=== PATIENT | female | born 1940 | race African-American/Black ===

== ENCOUNTER 2017-03-04 17:43 | Inpatient (IN) | payer MEDICARE, MEDICAID ==
[~2017-03-04] VITALS: Ht 162.6 cm; Wt 62.1 kg
[~2017-03-04 17:43] MED LIST: METO-539 PO
[2017-03-04 19:30] LABS: BASOPHILS % 0.7 % (0.0-2.0); EOSINOPHILS % 0.5 % (0.0-5.0); HEMATOCRIT. 37.4 % (36.0-48.0); HEMOGLOBIN. 12.4 g/dL (12.0-16.0); LYMPHOCYTES % 14.2 % (20.0-50.0); MEAN CORPUSCULAR HEMOGLOBIN 30.1 pg (28.0-32.0); MEAN CORPUSCULAR VOLUME 90.5 fL (81.0-99.0); MEAN PLATELET VOLUME 9.1 fl (7.4-10.4); MONOCYTES % 7.8 % (2.0-8.0); NEUTROPHILS % 76.8 % (40.0-76.0); PLATELET 192 x1000/uL (130-400); RED BLOOD CELL COUNT 4.13 mill/uL (4.2-5.4)
[2017-03-04 19:37] LABS: INR 1.1; PARTIAL THROMBOPLASTIN TIME 26.4 sec (24.0-34.0); PROTHROMBIN TIME 11.3 sec
[2017-03-04 19:47] LABS: CARBON DIOXIDE 27 mEq/L (21-32); CHLORIDE 104 mEq/L (98-107)
[2017-03-04 19:48] LABS: TROPONIN I < 0.02 ng/mL (0.00-0.04)
[2017-03-05] MEDS ORDERED: DOCUSATE SODIUM 100MG CAPSULE PO PRN (00:45)
[2017-03-05] MEDS ORDERED: IPRATROPIUM/ALBUTEROL 0.5-3(2.5)MG/3ML NEB INH PRN (00:45)
[2017-03-05] MEDS ORDERED: ONDANSETRON HCL 4MG/2ML VIAL IV PRN (00:45)
[2017-03-05] MEDS: ACETAMINOPHEN 325MG TABLET PO PRN ×2 (02:13→11:12)
[2017-03-05 05:45] LABS: HEMATOCRIT 34.9 % (36.0-48.0); HEMOGLOBIN 11.6 g/dL (12.0-16.0); MEAN CORPUSCULAR HEMOGLOBIN 29.9 pg (28.0-32.0); MEAN CORPUSCULAR VOLUME 90.4 fL (81.0-99.0); PLATELET 179 x1000/uL (130-400); RED BLOOD CELL COUNT 3.86 mill/uL (4.2-5.4); RED CELL DISTRIBUTION WIDTH 14.8 % (11.6-14.6)
[2017-03-05 06:12] LABS: CHLORIDE 105 mEq/L (98-107)
[2017-03-05 06:29] LABS: CARBON DIOXIDE 28 mEq/L (21-32); HDL CHOLESTEROL 53 mg/dL (40-59); LDL CHOLESTEROL 125 mg/dL (5-100)
[2017-03-05] MEDS ORDERED: ATOR10TA69 PO (10:29)
[2017-03-05] MEDS ORDERED: AMLO2.5T45 PO (10:29)
[2017-03-05] MEDS ORDERED: ASPI-1159 PO (10:29)
[2017-03-05] MEDS ORDERED: CLOP75TA33 PO (10:29)
[2017-03-05] MEDS ORDERED: LISI-186 PO (10:29)
[2017-03-05] MEDS ORDERED: CLOPIDOGREL 75MG TABLET PO SCH (11:00)
[2017-03-05] MEDS ORDERED: ASPIRIN 81MG TABLET PO SCH (11:00)
[2017-03-05] MEDS: CLOPIDOGREL 75MG TABLET PO SCH (11:09)
[2017-03-05] MEDS: LISINOPRIL 5MG TABLET PO SCH (11:09)
[2017-03-05] MEDS: METOPROLOL TARTRATE 50MG TABLET PO SCH ×2 (11:10→21:00)
[2017-03-05] MEDS: ASPIRIN 81MG EC TABLET PO SCH (11:11)
[2017-03-05] MEDS: OMEPRAZOLE 20MG CAPSULE EXTENDED RELEASE PO SCH (11:11)
[2017-03-05] MEDS: AMLODIPINE 2.5MG TABLET PO SCH (11:11)
[2017-03-05] MEDS: LOSARTAN POTASSIUM 50 MG TABLET PO SCH (11:15)
[2017-03-05 12:44] LABS: CLARITY URINE CLOUDY (CLEAR); COLOR URINE YELLOW (YELLOW); KETONES URINE NEGATIVE (NEGATIVE); LEUKOCYTE ESTERASE URINE TRACE (NEGATIVE); NITRITE URINE NEGATIVE (NEGATIVE); OCCULT BLOOD URINE NEGATIVE (NEGATIVE); PROTEIN URINE NEGATIVE (NEGATIVE); SPECIFIC GRAVITY URINE 1.028 (1.005-1.030)
[2017-03-05 13:08] LABS: *AMPHETAMINES SCREEN URINE NEGATIVE (NEGATIVE); *BARBITURATES SCREEN URINE NEGATIVE (NEGATIVE); *BENZODIAZEPINES SCREEN URINE NEGATIVE (NEGATIVE); *COCAINE SCREEN URINE NEGATIVE (NEGATIVE); CANNABINOID URINE SCREEN NEGATIVE (NEGATIVE); METHADONE URINE SCREEN NEGATIVE (NEGATIVE); OPIATES URINE SCREEN NEGATIVE (NEGATIVE); PHENCYCLIDINE URINE SCREEN NEGATIVE (NEGATIVE)
[2017-03-05] MEDS: ATORVASTATIN CALCIUM 10MG TABLET PO SCH (22:03)
[2017-03-06] MEDS: OMEPRAZOLE 20MG CAPSULE EXTENDED RELEASE PO SCH (06:14)
[2017-03-06] MEDS: CLOPIDOGREL 75MG TABLET PO SCH (09:04)
[2017-03-06] MEDS: ASPIRIN 81MG EC TABLET PO SCH (09:04)
[2017-03-06] MEDS: AMLODIPINE 2.5MG TABLET PO SCH (09:05)
[2017-03-06] MEDS: LOSARTAN POTASSIUM 50 MG TABLET PO SCH (09:05)
[2017-03-06] MEDS ORDERED: LACTULOSE 20G/30ML UDC PO PRN (13:30)
[2017-03-06] MEDS: METOPROLOL TARTRATE 50MG TABLET PO SCH ×2 (14:57→21:00)
[2017-03-06] MEDS: LISINOPRIL 5MG TABLET PO SCH (14:57)
[2017-03-06] MEDS: ACETAMINOPHEN 325MG TABLET PO PRN (21:59)
[2017-03-06] MEDS: ATORVASTATIN CALCIUM 10MG TABLET PO SCH (21:59)
[2017-03-07 05:46] LABS: CARBON DIOXIDE 30 mEq/L (21-32); CHLORIDE 105 mEq/L (98-107)
[2017-03-07] MEDS: OMEPRAZOLE 20MG CAPSULE EXTENDED RELEASE PO SCH (06:16)
[2017-03-07 07:20] LABS: BASOPHILS % 0.9 % (0.0-2.0); EOSINOPHILS % 2.5 % (0.0-5.0); LYMPHOCYTES % 39.4 % (20.0-50.0); MEAN CORPUSCULAR HEMOGLOBIN 30.1 pg (28.0-32.0); MEAN CORPUSCULAR VOLUME 90.6 fL (81.0-99.0); MEAN PLATELET VOLUME 9.4 fl (7.4-10.4); MONOCYTES % 8.1 % (2.0-8.0); NEUTROPHILS % 49.1 % (40.0-76.0); PLATELET 235 x1000/uL (130-400); RED BLOOD CELL COUNT 3.97 mill/uL (4.2-5.4); RED CELL DISTRIBUTION WIDTH 14.5 % (11.6-14.6)
[2017-03-07] MEDS ORDERED: REGADENOSON 0.4 MG/5 ML IV NR (07:30)
[2017-03-07] MEDS: METOPROLOL TARTRATE 50MG TABLET PO SCH ×3 (09:00→20:31)
[2017-03-07] MEDS ORDERED: REGADENOSON 0.4 MG/5 ML IV ONE (10:39)
[2017-03-07] MEDS ORDERED: SODIUM CHLORIDE 0.9% 1,000 ML IV SCH (12:15)
[2017-03-07] MEDS: SODIUM CHLORIDE 0.9% 1,000 ML IV SCH (12:37)
[2017-03-07] MEDS: CLOPIDOGREL 75MG TABLET PO SCH (14:20)
[2017-03-07] MEDS: ASPIRIN 81MG EC TABLET PO SCH (14:20)
[2017-03-07] MEDS: AMLODIPINE 2.5MG TABLET PO SCH (14:21)
[2017-03-07] MEDS: LISINOPRIL 5MG TABLET PO SCH (14:21)
[2017-03-07] MEDS: LOSARTAN POTASSIUM 50 MG TABLET PO SCH (14:23)
[2017-03-07] MEDS: ATORVASTATIN CALCIUM 10MG TABLET PO SCH (20:31)
[2017-03-07] MEDS: ACETAMINOPHEN 325MG TABLET PO PRN (22:07)
[2017-03-08] MEDS: SODIUM CHLORIDE 0.9% 1,000 ML IV SCH ×2 (04:34→20:24)
[2017-03-08 06:19] LABS: BASOPHILS % 1.1 % (0.0-2.0); EOSINOPHILS % 2.6 % (0.0-5.0); HEMOGLOBIN. 11.5 g/dL (12.0-16.0); LYMPHOCYTES % 35.7 % (20.0-50.0); MEAN CORPUSCULAR HEMOGLOBIN 29.9 pg (28.0-32.0); MEAN PLATELET VOLUME 8.9 fl (7.4-10.4); NEUTROPHILS % 51.6 % (40.0-76.0); PLATELET 229 x1000/uL (130-400); RED BLOOD CELL COUNT 3.84 mill/uL (4.2-5.4); RED CELL DISTRIBUTION WIDTH 14.5 % (11.6-14.6)
[2017-03-08] MEDS: OMEPRAZOLE 20MG CAPSULE EXTENDED RELEASE PO SCH (06:25)
[2017-03-08 07:04] LABS: CHLORIDE 107 mEq/L (98-107)
[2017-03-08 07:07] LABS: CARBON DIOXIDE 28 mEq/L (21-32)
[2017-03-08] MEDS: METOPROLOL TARTRATE 50MG TABLET PO SCH ×2 (08:23→20:24)
[2017-03-08] MEDS: CLOPIDOGREL 75MG TABLET PO SCH (08:23)
[2017-03-08] MEDS: LOSARTAN POTASSIUM 50 MG TABLET PO SCH (08:23)
[2017-03-08] MEDS: LISINOPRIL 5MG TABLET PO SCH (08:23)
[2017-03-08] MEDS: AMLODIPINE 2.5MG TABLET PO SCH (08:24)
[2017-03-08] MEDS: ASPIRIN 81MG EC TABLET PO SCH (10:43)
[2017-03-08] MEDS: CLONIDINE 0.1MG TABLET PO PRN (16:59)
[2017-03-08] MEDS: ATORVASTATIN CALCIUM 10MG TABLET PO SCH (20:24)
[2017-03-08] MEDS: ACETAMINOPHEN 325MG TABLET PO PRN (23:25)
[2017-03-09] MEDS: OMEPRAZOLE 20MG CAPSULE EXTENDED RELEASE PO SCH (06:18)
[2017-03-09] MEDS ORDERED: IOHEXOL-350 100 ML BOTTLE ONE (11:18)
[2017-03-09] MEDS ORDERED: SODIUM CHLORIDE 0.9% 10ML VIAL ONE (11:18)
[2017-03-09] MEDS: LOSARTAN POTASSIUM 50 MG TABLET PO SCH (11:38)
[2017-03-09] MEDS: ASPIRIN 81MG EC TABLET PO SCH (11:38)
[2017-03-09] MEDS: AMLODIPINE 2.5MG TABLET PO SCH (11:38)
[2017-03-09] MEDS: LISINOPRIL 5MG TABLET PO SCH (11:38)
[2017-03-09] MEDS: CLOPIDOGREL 75MG TABLET PO SCH (11:38)
[2017-03-09] MEDS: METOPROLOL TARTRATE 50MG TABLET PO SCH ×2 (11:39→21:07)
[2017-03-09] MEDS: SODIUM CHLORIDE 0.9% 1,000 ML IV SCH ×2 (14:30→21:07)
[2017-03-09] MEDS: ATORVASTATIN CALCIUM 10MG TABLET PO SCH (21:07)
[2017-03-10] MEDS: CLONIDINE 0.1MG TABLET PO PRN (00:24)
[2017-03-10] MEDS: OMEPRAZOLE 20MG CAPSULE EXTENDED RELEASE PO SCH (06:35)
[2017-03-10 07:20] LABS: BASOPHILS % 0.9 % (0.0-2.0); EOSINOPHILS % 2.2 % (0.0-5.0); HEMATOCRIT. 36.2 % (36.0-48.0); LYMPHOCYTES % 39.6 % (20.0-50.0); MEAN CORPUSCULAR HEMOGLOBIN 30.1 pg (28.0-32.0); MEAN CORPUSCULAR VOLUME 90.3 fL (81.0-99.0); MEAN PLATELET VOLUME 8.8 fl (7.4-10.4); NEUTROPHILS % 50.3 % (40.0-76.0); PLATELET 244 x1000/uL (130-400); RED CELL DISTRIBUTION WIDTH 14.7 % (11.6-14.6)
[2017-03-10 07:36] LABS: CARBON DIOXIDE 28 mEq/L (21-32); CHLORIDE 106 mEq/L (98-107)
[2017-03-10] MEDS: LOSARTAN POTASSIUM 50 MG TABLET PO SCH (08:40)
[2017-03-10] MEDS: AMLODIPINE 2.5MG TABLET PO SCH (08:40)
[2017-03-10] MEDS: LISINOPRIL 5MG TABLET PO SCH (08:40)
[2017-03-10] MEDS: ASPIRIN 81MG EC TABLET PO SCH (08:40)
[2017-03-10] MEDS: CLOPIDOGREL 75MG TABLET PO SCH (08:41)
[2017-03-10] MEDS: METOPROLOL TARTRATE 50MG TABLET PO SCH (08:41)
[2017-03-10 13:35] VITALS: BP 162/97
== END 2017-03-10 14:55 | disposition home health service (06) | DRG 74 ==
LOC: ER 17:43 → SUPCPDRO 03-05 00:36 → EDBEDREQ 03-05 00:39 → 6WST 03-05 03:03 → ENRESERV 03-05 03:03
PROVIDERS: ADMIT Family Medicine Adult Medicine; ATTEND Family Medicine Adult Medicine
DX: G90.8 Other disorders of autonomic nervous system (principal); G95.20 Unspecified cord compression; E78.5 Hyperlipidemia, unspecified; M48.02 Spinal stenosis, cervical region; E78.00 Pure hypercholesterolemia, unspecified; F03.90 Unspecified dementia, unspecified severity, without behavioral disturbance, psychotic disturbance, mood disturbance, and anxiety; F17.210 Nicotine dependence, cigarettes, uncomplicated; M50.21 Other cervical disc displacement, high cervical region; M50.81 Other cervical disc disorders, high cervical region; I10 Essential (primary) hypertension; I65.21 Occlusion and stenosis of right carotid artery; Z82.49 Family history of ischemic heart disease and other diseases of the circulatory system; Z86.73 Personal history of transient ischemic attack (TIA), and cerebral infarction without residual deficits; Z79.899 Other long term (current) drug therapy; Z72.89 Other problems related to lifestyle; Z90.49 Acquired absence of other specified parts of digestive tract; Z79.82 Long term (current) use of aspirin; I95.1 Orthostatic hypotension
CPT/HCPCS: 36415; 70450; 70498; 70544; 70553; 71010; 72125; 72141; 78452; 80048; 80053; 80061; 80305; 81001; 83735; 83880; 84443; 84484; 85025; 85027; 85610; 85730; 87086; 93005; 93017; 93306; 93880; 97162; 97165; 99285; A4216; A9500; G0482; J2785; J7030; Q9967

== ENCOUNTER 2019-01-28 18:12 | Inpatient (IN) | payer MEDICARE, MEDICAID ==
[~2019-01-28] VITALS: Ht 162.6 cm; Wt 70.5 kg
[~2019-01-28 18:12] MED LIST changes: +AMLO2.5T45 PO; +ASPI-1393 PO; +CLOP75TA33 PO; +LISI-186 PO
[2019-01-28 21:19] LABS: CHLORIDE 105 mEq/L (98-107); INR 1.1; PROTHROMBIN TIME 10.9 sec (9.6-11.0)
[2019-01-28 21:21] LABS: BASOPHILS % 1.1 % (0.0-2.0); EOSINOPHILS % 1.6 % (0.0-5.0); HEMATOCRIT. 41.3 % (36.0-48.0); HEMOGLOBIN. 13.8 g/dL (12.0-16.0); LYMPHOCYTES % 37.1 % (20.0-50.0); MEAN CORPUSCULAR HEMOGLOBIN 30.3 pg (28.0-32.0); MEAN CORPUSCULAR VOLUME 90.5 fL (81.0-99.0); MEAN PLATELET VOLUME 9.9 fl (7.4-10.4); MONOCYTES % 6.7 % (2.0-8.0); NEUTROPHILS % 53.5 % (40.0-76.0); PLATELET 156 x1000/uL (130-400); RED BLOOD CELL COUNT 4.56 mill/uL (4.2-5.4); RED CELL DISTRIBUTION WIDTH 15.1 % (11.6-14.6)
[2019-01-28] MEDS ORDERED: SODIUM CHLORIDE 0.9% 1000ML BAG (SEPSIS BOLUS) IV ONE (21:45)
[2019-01-28 23:57] LABS: CLARITY URINE CLEAR (CLEAR); COLOR URINE YELLOW (YELLOW); KETONES URINE NEGATIVE (NEGATIVE); LEUKOCYTE ESTERASE URINE TRACE (NEGATIVE); NITRITE URINE NEGATIVE (NEGATIVE); OCCULT BLOOD URINE NEGATIVE (NEGATIVE); PROTEIN URINE NEGATIVE (NEGATIVE); SPECIFIC GRAVITY URINE 1.014 (1.005-1.030)
[2019-01-29 00:30] VITALS: BP_SYST 161; BP_SYST 162; BP_DIAS 64; BP_DIAS 70
[2019-01-29] MEDS: CLONIDINE 0.1MG TABLET PO PRN ×2 (01:44→13:40)
[2019-01-29] MEDS ORDERED: HYDROCODONE/ACETAMINOPHEN 5/325MG TABLET PO PRN (02:15)
[2019-01-29] MEDS ORDERED: ATOR10TA69 PO (02:21)
[2019-01-29] MEDS ORDERED: ERGO400C PO (02:21)
[2019-01-29 04:00] VITALS: BP 137/68
[2019-01-29 08:00] VITALS: BP 155/50
[2019-01-29] MEDS ORDERED: MEDICATION NOT ON FORMULARY EA (Amlodipine Besylate 1 TAB) PO SCH (09:00)
[2019-01-29] MEDS ORDERED: MEDICATION NOT ON FORMULARY EA (Lisinopril 1 TAB) PO SCH (09:00)
[2019-01-29] MEDS ORDERED: MEDICATION NOT ON FORMULARY EA (Clopidogrel Bisulfate (Clopidogrel) 1 TAB) PO SCH (09:00)
[2019-01-29] MEDS: LISINOPRIL 5MG TABLET PO SCH (09:18)
[2019-01-29] MEDS: AMLODIPINE 2.5MG TABLET PO SCH (09:18)
[2019-01-29] MEDS: CLOPIDOGREL 75MG TABLET PO SCH (09:18)
[2019-01-29 12:00] VITALS: BP 165/71
[2019-01-29] MEDS ORDERED: HYDROCODONE/ACETAMINOPHEN 10/325MG TABLET PO PRN (12:30)
[2019-01-29] MEDS ORDERED: ONDANSETRON HCL 4MG/2ML INJ IV PRN (12:30)
[2019-01-29] MEDS ORDERED: DIPHENHYDRAMINE 50MG/ML VIAL IV PRN (12:30)
[2019-01-29] MEDS ORDERED: MAGNESIUM/ALUMINUM HYDROXIDE/SIMETHICONE 30ML UDC PO PRN (12:30)
[2019-01-29] MEDS ORDERED: DOCUSATE SODIUM 100MG CAPSULE PO PRN (12:30)
[2019-01-29 16:00] VITALS: BP 140/49
[2019-01-29] MEDS: NICOTINE 7MG PATCH TD SCH (20:36)
[2019-01-29] MEDS: ENOXAPARIN 40MG/0.4ML SYR SUBCUT SCH (20:53)
[2019-01-29 21:29] VITALS: BP 136/66
[2019-01-29 23:22] LABS: CHLORIDE 106 mEq/L (98-107)
[2019-01-29 23:29] LABS: BASOPHILS % 1.1 % (0.0-2.0); EOSINOPHILS % 2.1 % (0.0-5.0); HEMATOCRIT. 38.3 % (36.0-48.0); HEMOGLOBIN. 12.9 g/dL (12.0-16.0); LYMPHOCYTES % 41.8 % (20.0-50.0); MEAN CORPUSCULAR HEMOGLOBIN 30.2 pg (28.0-32.0); MEAN CORPUSCULAR VOLUME 89.7 fL (81.0-99.0); MEAN PLATELET VOLUME 9.6 fl (7.4-10.4); MONOCYTES % 6.8 % (2.0-8.0); NEUTROPHILS % 48.2 % (40.0-76.0); PLATELET 148 x1000/uL (130-400); RED BLOOD CELL COUNT 4.27 mill/uL (4.2-5.4); RED CELL DISTRIBUTION WIDTH 15.2 % (11.6-14.6)
[2019-01-29 23:30] LABS: LDL CHOLESTEROL 114 mg/dL (5-100)
[2019-01-29 23:31] LABS: HDL CHOLESTEROL 54 mg/dL (40-59)
[2019-01-30] VITALS: BP 140/66
[2019-01-30 04:00] VITALS: BP 132/59
[2019-01-30 06:51] LABS: BASOPHILS % 1.3 % (0.0-2.0); EOSINOPHILS % 2.5 % (0.0-5.0); HEMATOCRIT. 36.4 % (36.0-48.0); HEMOGLOBIN. 12.2 g/dL (12.0-16.0); LYMPHOCYTES % 44.1 % (20.0-50.0); MEAN CORPUSCULAR HEMOGLOBIN 30.3 pg (28.0-32.0); NEUTROPHILS % 42.1 % (40.0-76.0); PLATELET 147 x1000/uL (130-400); RED BLOOD CELL COUNT 4.04 mill/uL (4.2-5.4); RED CELL DISTRIBUTION WIDTH 15.2 % (11.6-14.6)
[2019-01-30 06:58] LABS: CHLORIDE 107 mEq/L (98-107)
[2019-01-30 07:17] LABS: LDL CHOLESTEROL 113 mg/dL (5-100)
[2019-01-30 07:18] LABS: PHOSPHORUS 3.2 mg/dL (2.5-4.9)
[2019-01-30 07:19] LABS: HDL CHOLESTEROL 52 mg/dL (40-59)
[2019-01-30 08:00] VITALS: BP 144/73
[2019-01-30] MEDS: AMLODIPINE 2.5MG TABLET PO SCH (08:13)
[2019-01-30] MEDS: CLOPIDOGREL 75MG TABLET PO SCH (08:13)
[2019-01-30] MEDS: LISINOPRIL 5MG TABLET PO SCH (08:13)
[2019-01-30] MEDS: NICOTINE 7MG PATCH TD SCH (08:13)
[2019-01-30] MEDS ORDERED: GADOBENATE DIMEGLUMINE 529 MG/ML 10ML IV ONE (10:21)
[2019-01-30 12:00] VITALS: BP 135/61
[2019-01-30 15:50] VITALS: BP 127/64
[2019-01-30] MEDS: ACETAMINOPHEN 325MG TABLET PO PRN (17:15)
[2019-01-30 20:00] VITALS: BP 145/74
[2019-01-30] MEDS: ENOXAPARIN 40MG/0.4ML SYR SUBCUT SCH (20:24)
[2019-01-31] VITALS: BP 151/74
[2019-01-31 04:00] VITALS: BP 151/75
[2019-01-31] MEDS: ACETAMINOPHEN 325MG TABLET PO PRN (06:31)
[2019-01-31 06:33] LABS: BASOPHILS % 0.7 % (0.0-2.0); EOSINOPHILS % 2.3 % (0.0-5.0); HEMATOCRIT. 38.6 % (36.0-48.0); HEMOGLOBIN. 12.7 g/dL (12.0-16.0); LYMPHOCYTES % 44.2 % (20.0-50.0); MEAN CORPUSCULAR HEMOGLOBIN 29.7 pg (28.0-32.0); MEAN CORPUSCULAR VOLUME 90.5 fL (81.0-99.0); MEAN PLATELET VOLUME 10.1 fl (7.4-10.4); MONOCYTES % 8.8 % (2.0-8.0); PLATELET 146 x1000/uL (130-400); RED BLOOD CELL COUNT 4.27 mill/uL (4.2-5.4); RED CELL DISTRIBUTION WIDTH 15.2 % (11.6-14.6)
[2019-01-31 06:44] LABS: CHLORIDE 107 mEq/L (98-107)
[2019-01-31 08:00] VITALS: BP 184/80
[2019-01-31] MEDS: NICOTINE 7MG PATCH TD SCH (09:00)
[2019-01-31] MEDS: CLOPIDOGREL 75MG TABLET PO SCH (09:00)
[2019-01-31] MEDS: LISINOPRIL 5MG TABLET PO SCH ×2 (09:01→20:36)
[2019-01-31] MEDS: AMLODIPINE 2.5MG TABLET PO SCH (09:01)
[2019-01-31 12:00] VITALS: BP 123/61
[2019-01-31 16:00] VITALS: BP 131/70
[2019-01-31 20:00] VITALS: BP 134/64
[2019-01-31] MEDS: AMLODIPINE 5MG TABLET PO SCH (20:36)
[2019-01-31] MEDS: ENOXAPARIN 40MG/0.4ML SYR SUBCUT SCH (20:36)
[2019-02-01] VITALS (7 sets, daily range): BP systolic 99–134; BP diastolic 41–65
[2019-02-01] MEDS: ACETAMINOPHEN 325MG TABLET PO PRN ×3 (00:50→14:30)
[2019-02-01 06:22] LABS: EOSINOPHILS % 1.3 % (0.0-5.0); HEMOGLOBIN. 12.4 g/dL (12.0-16.0); LYMPHOCYTES % 31.4 % (20.0-50.0); MEAN CORPUSCULAR HEMOGLOBIN 30.4 pg (28.0-32.0); MEAN CORPUSCULAR VOLUME 90.3 fL (81.0-99.0); MEAN PLATELET VOLUME 10.1 fl (7.4-10.4); MONOCYTES % 7.2 % (2.0-8.0); NEUTROPHILS % 59.1 % (40.0-76.0); PLATELET 146 x1000/uL (130-400); RED BLOOD CELL COUNT 4.09 mill/uL (4.2-5.4); RED CELL DISTRIBUTION WIDTH 15.4 % (11.6-14.6)
[2019-02-01 07:18] LABS: CHLORIDE 106 mEq/L (98-107)
[2019-02-01] MEDS: NICOTINE 7MG PATCH TD SCH (08:01)
[2019-02-01] MEDS: LISINOPRIL 5MG TABLET PO SCH ×2 (08:01→20:15)
[2019-02-01] MEDS: CLOPIDOGREL 75MG TABLET PO SCH (08:01)
[2019-02-01] MEDS: AMLODIPINE 5MG TABLET PO SCH ×2 (08:01→20:14)
[2019-02-01] MEDS: ASPIRIN 81MG EC TABLET PO SCH (14:30)
[2019-02-01] MEDS: ENOXAPARIN 40MG/0.4ML SYR SUBCUT SCH (20:15)
[2019-02-02] VITALS: BP 146/66
[2019-02-02 04:00] VITALS: BP 135/70
[2019-02-02 06:33] LABS: BASOPHILS % 0.6 % (0.0-2.0); EOSINOPHILS % 1.6 % (0.0-5.0); HEMATOCRIT. 37.9 % (36.0-48.0); HEMOGLOBIN. 12.7 g/dL (12.0-16.0); LYMPHOCYTES % 47.3 % (20.0-50.0); MEAN CORPUSCULAR HEMOGLOBIN 30.2 pg (28.0-32.0); MEAN CORPUSCULAR VOLUME 90.1 fL (81.0-99.0); MEAN PLATELET VOLUME 9.7 fl (7.4-10.4); MONOCYTES % 9.2 % (2.0-8.0); NEUTROPHILS % 41.3 % (40.0-76.0); PLATELET 148 x1000/uL (130-400); RED BLOOD CELL COUNT 4.21 mill/uL (4.2-5.4); RED CELL DISTRIBUTION WIDTH 15.5 % (11.6-14.6)
[2019-02-02 07:33] LABS: CHLORIDE 107 mEq/L (98-107)
[2019-02-02 08:00] VITALS: BP 113/54
[2019-02-02] MEDS: CLOPIDOGREL 75MG TABLET PO SCH (08:54)
[2019-02-02] MEDS: NICOTINE 7MG PATCH TD SCH (08:54)
[2019-02-02] MEDS: AMLODIPINE 5MG TABLET PO SCH (08:54)
[2019-02-02] MEDS: LISINOPRIL 5MG TABLET PO SCH (08:54)
[2019-02-02] MEDS: ASPIRIN 81MG EC TABLET PO SCH (08:54)
[2019-02-02] MEDS: ACETAMINOPHEN 325MG TABLET PO PRN (11:29)
[2019-02-02 12:00] VITALS: BP 132/62
[2019-02-02 16:00] VITALS: BP 122/57
[2019-02-02] MEDS ORDERED: ASPI-1073 PO (16:33)
[2019-02-02 17:08] VITALS: BP 138/62
== END 2019-02-02 18:00 | disposition home health service (06) | DRG 65 ==
LOC: ER 18:12 → 8WST 23:27 → EDBEDREQ 23:36 → EDBEDREQTM 23:36 → ENRESERV 23:55
PROVIDERS: ADMIT Specialist; ATTEND Emergency Medicine
DX: I63.9 Cerebral infarction, unspecified (principal); N39.0 Urinary tract infection, site not specified; E87.2 Acidosis; I25.10 Atherosclerotic heart disease of native coronary artery without angina pectoris; H54.62 Unqualified visual loss, left eye, normal vision right eye; I10 Essential (primary) hypertension; J44.9 Chronic obstructive pulmonary disease, unspecified; I65.21 Occlusion and stenosis of right carotid artery; E78.5 Hyperlipidemia, unspecified; E78.00 Pure hypercholesterolemia, unspecified; F17.210 Nicotine dependence, cigarettes, uncomplicated; Z90.49 Acquired absence of other specified parts of digestive tract; Z90.710 Acquired absence of both cervix and uterus; Z79.01 Long term (current) use of anticoagulants; Z79.899 Other long term (current) drug therapy; Z79.82 Long term (current) use of aspirin; Z71.6 Tobacco abuse counseling
CPT/HCPCS: 36415; 70547; 70551; 71045; 80048; 80061; 82962; 83036; 83605; 83735; 84100; 84443; 84484; 93005; 93306; 93970; 96374; 96375; 97162; 97166; 99285; A9577; J1650; J7030

== ENCOUNTER 2019-05-18 21:15 | Inpatient (IN) | payer MEDICARE, MEDICAID ==
[~2019-05-18] VITALS: Ht 163.8 cm; Wt 54.4 kg
[~2019-05-18 21:15] MED LIST changes: +ASPI-1073 PO; -ASPI-1393 PO; +ATOR10TA69 PO; +ERGO400C PO; -METO-539 PO
[2019-05-18] MEDS ORDERED: ADENOSINE 3 MG/ML 2ML VIAL IV ONE ×2 (21:25→21:30)
[2019-05-18] MEDS ORDERED: NITROGLYCERIN 0.4MG TABLET SL SL PRN (21:30)
[2019-05-18] MEDS ORDERED: ASPIRIN 81MG TABLET PO ONE (21:30)
[2019-05-18 22:47] LABS: EOSINOPHILS % 0.7 % (0.0-5.0); HEMATOCRIT. 38.2 % (36.0-48.0); HEMOGLOBIN. 12.6 g/dL (12.0-16.0); LYMPHOCYTES % 17.5 % (20.0-50.0); MEAN CORPUSCULAR HEMOGLOBIN 30.4 pg (28.0-32.0); MEAN CORPUSCULAR VOLUME 92.2 fL (81.0-99.0); MEAN PLATELET VOLUME 9.5 fl (7.4-10.4); MONOCYTES % 4.4 % (2.0-8.0); NEUTROPHILS % 76.4 % (40.0-76.0); PLATELET 167 x1000/uL (130-400); RED BLOOD CELL COUNT 4.14 mill/uL (4.2-5.4); RED CELL DISTRIBUTION WIDTH 15.5 % (11.6-14.6)
[2019-05-18 22:50] LABS: CHLORIDE 106 mEq/L (98-107)
[2019-05-18 22:57] LABS: D-DIMER 0.46 mg/L FEU (<0.50); INR 1.1; PARTIAL THROMBOPLASTIN TIME 26.8 sec (23.4-31.0); PROTHROMBIN TIME 11.2 sec (9.6-11.0)
[2019-05-18] MEDS ORDERED: ENOXAPARIN 80MG/0.8ML SYR SUBCUT ONE (23:45)
[2019-05-19 03:00] VITALS: BP 134/69
[2019-05-19] MEDS ORDERED: ACETAMINOPHEN 325MG TABLET PO PRN (04:00)
[2019-05-19] MEDS ORDERED: CLONIDINE 0.1MG TABLET PO PRN (04:00)
[2019-05-19 04:59] LABS: EOSINOPHILS % 0.5 % (0.0-5.0); HEMATOCRIT. 35.9 % (36.0-48.0); LYMPHOCYTES % 28.5 % (20.0-50.0); MEAN CORPUSCULAR HEMOGLOBIN 30.5 pg (28.0-32.0); MEAN CORPUSCULAR VOLUME 91.6 fL (81.0-99.0); MONOCYTES % 5.5 % (2.0-8.0); NEUTROPHILS % 64.5 % (40.0-76.0); PLATELET 160 x1000/uL (130-400); RED BLOOD CELL COUNT 3.92 mill/uL (4.2-5.4); RED CELL DISTRIBUTION WIDTH 15.2 % (11.6-14.6)
[2019-05-19 05:06] LABS: CHLORIDE 108 mEq/L (98-107)
[2019-05-19 05:12] LABS: PHOSPHORUS 2.7 mg/dL (2.5-4.9)
[2019-05-19 12:00] VITALS: BP 142/55
[2019-05-19] MEDS: LISINOPRIL 5MG TABLET PO SCH (13:15)
[2019-05-19] MEDS ORDERED: REGADENOSON 0.4 MG/5 ML IV ONE (13:45)
[2019-05-19] MEDS: DILTIAZEM HCL 60MG TABLET PO SCH ×2 (14:00→21:49)
[2019-05-19] MEDS: CLOPIDOGREL 75MG TABLET PO SCH (14:54)
[2019-05-19] MEDS: ASPIRIN 81MG EC TABLET PO SCH (14:55)
[2019-05-19 16:00] VITALS: BP 157/56
[2019-05-19 20:47] VITALS: BP 129/64
[2019-05-19] MEDS: ATORVASTATIN CALCIUM 40MG TABLET PO SCH (21:49)
[2019-05-19] MEDS: ENOXAPARIN 40MG/0.4ML SYR SUBCUT SCH (21:50)
[2019-05-20 00:46] VITALS: BP 119/57
[2019-05-20 04:00] VITALS: BP 134/69
[2019-05-20] MEDS: DILTIAZEM HCL 60MG TABLET PO SCH (06:00)
[2019-05-20 07:00] LABS: BASOPHILS % 1.2 % (0.0-2.0); EOSINOPHILS % 2.4 % (0.0-5.0); HEMOGLOBIN. 11.9 g/dL (12.0-16.0); LYMPHOCYTES % 48.3 % (20.0-50.0); MEAN CORPUSCULAR HEMOGLOBIN 30.3 pg (28.0-32.0); MEAN CORPUSCULAR VOLUME 91.8 fL (81.0-99.0); MEAN PLATELET VOLUME 9.5 fl (7.4-10.4); MONOCYTES % 6.7 % (2.0-8.0); NEUTROPHILS % 41.4 % (40.0-76.0); PLATELET 164 x1000/uL (130-400); RED BLOOD CELL COUNT 3.92 mill/uL (4.2-5.4); RED CELL DISTRIBUTION WIDTH 15.3 % (11.6-14.6)
[2019-05-20 07:24] LABS: CHLORIDE 109 mEq/L (98-107)
[2019-05-20 08:00] VITALS: BP 152/75
[2019-05-20] MEDS: CLOPIDOGREL 75MG TABLET PO SCH (08:13)
[2019-05-20] MEDS: ASPIRIN 81MG EC TABLET PO SCH (08:13)
[2019-05-20] MEDS: LISINOPRIL 5MG TABLET PO SCH (08:16)
[2019-05-20] MEDS ORDERED: REGADENOSON 0.4 MG/5 ML IV ONE (09:20)
[2019-05-20 12:00] VITALS: BP 145/68
[2019-05-20] MEDS: DILTIAZEM HCL 30MG TABLET PO SCH ×2 (14:34→21:32)
[2019-05-20 16:00] VITALS: BP 155/72
[2019-05-20 20:00] VITALS: BP 116/48
[2019-05-20] MEDS: ATORVASTATIN CALCIUM 40MG TABLET PO SCH (21:31)
[2019-05-20] MEDS: ENOXAPARIN 40MG/0.4ML SYR SUBCUT SCH (21:32)
[2019-05-21] VITALS: BP 135/49
[2019-05-21 04:00] VITALS: BP 128/47
[2019-05-21] MEDS: DILTIAZEM HCL 30MG TABLET PO SCH (05:44)
[2019-05-21 08:00] VITALS: BP 126/84
[2019-05-21 08:05] LABS: BASOPHILS % 1.1 % (0.0-2.0); EOSINOPHILS % 2.7 % (0.0-5.0); HEMATOCRIT. 36.3 % (36.0-48.0); HEMOGLOBIN. 12.1 g/dL (12.0-16.0); LYMPHOCYTES % 43.1 % (20.0-50.0); MEAN CORPUSCULAR HEMOGLOBIN 30.3 pg (28.0-32.0); MEAN CORPUSCULAR VOLUME 91.1 fL (81.0-99.0); MEAN PLATELET VOLUME 9.5 fl (7.4-10.4); MONOCYTES % 7.8 % (2.0-8.0); NEUTROPHILS % 45.3 % (40.0-76.0); PLATELET 160 x1000/uL (130-400); RED BLOOD CELL COUNT 3.98 mill/uL (4.2-5.4); RED CELL DISTRIBUTION WIDTH 15.4 % (11.6-14.6)
[2019-05-21 08:48] LABS: CHLORIDE 108 mEq/L (98-107)
[2019-05-21] MEDS: ASPIRIN 81MG EC TABLET PO SCH (09:20)
[2019-05-21] MEDS: LISINOPRIL 5MG TABLET PO SCH (09:20)
[2019-05-21] MEDS: CLOPIDOGREL 75MG TABLET PO SCH (09:20)
[2019-05-21 13:07] VITALS: BP 131/62
== END 2019-05-21 14:05 | disposition home health service (06) | DRG 310 ==
LOC: ER 21:15 → 6WST 23:41 → EDBEDREQ 23:49 → EDBEDREQTM 23:49 → ENRESERV 05-19 01:49
PROVIDERS: ADMIT Specialist; ATTEND Specialist
DX: I47.1 Supraventricular tachycardia (principal); E78.00 Pure hypercholesterolemia, unspecified; I10 Essential (primary) hypertension; J44.9 Chronic obstructive pulmonary disease, unspecified; I25.10 Atherosclerotic heart disease of native coronary artery without angina pectoris; I48.91 Unspecified atrial fibrillation; E78.5 Hyperlipidemia, unspecified; Z90.49 Acquired absence of other specified parts of digestive tract; Z90.710 Acquired absence of both cervix and uterus; Z86.73 Personal history of transient ischemic attack (TIA), and cerebral infarction without residual deficits; Z79.82 Long term (current) use of aspirin; Z79.899 Other long term (current) drug therapy; Z82.49 Family history of ischemic heart disease and other diseases of the circulatory system
CPT/HCPCS: 36415; 71045; 78452; 80048; 83735; 83880; 84100; 84443; 84484; 85379; 92610; 93005; 93017; 93306; 93970; 96374; 97162; 97165; 99291; A9500; J0153; J1650; J2785

== ENCOUNTER 2019-06-14 06:36 | Inpatient (IN) | payer MEDICARE, MEDICAID ==
[~2019-06-14] VITALS: Ht 162.6 cm; Wt 64.6 kg
[2019-06-14] VITALS (16 sets, daily range): BP systolic 128–158; BP diastolic 59–84
[2019-06-14 07:55] LABS: CHLORIDE 105 mEq/L (98-107)
[2019-06-14 07:56] LABS: PROTHROMBIN TIME 10.7 sec (9.6-11.0)
[2019-06-14 08:14] LABS: HEMATOCRIT 39.7 % (36.0-48.0); MEAN CORPUSCULAR HEMOGLOBIN 30.6 pg (28.0-32.0); MEAN CORPUSCULAR VOLUME 93.5 fL (81.0-99.0); PLATELET 176 x1000/uL (130-400); RED BLOOD CELL COUNT 4.25 mill/uL (4.2-5.4); RED CELL DISTRIBUTION WIDTH 15.3 % (11.6-14.6)
[2019-06-14] MEDS ORDERED: LIDOCAINE HCL 1% 20ML VIAL (Pyxis) INJ ONE ×2 (08:25→09:23)
[2019-06-14] MEDS ORDERED: DILT240T12 PO (08:48)
[2019-06-14] MEDS ORDERED: HEPARIN SODIUM 1,000 UNIT/1ML VIAL IV ONE (09:30)
[2019-06-14] MEDS ORDERED: ADENOSINE 3 MG/ML 2ML VIAL IV ONE ×3 (10:52→11:09)
[2019-06-14] MEDS ORDERED: ACETAMINOPHEN 325MG TABLET PO PRN (12:45)
[2019-06-14] MEDS ORDERED: ATROPINE SULFATE 1MG/10ML SYR IV PRN (12:45)
[2019-06-14] MEDS ORDERED: POTASSIUM CHLORIDE 20MEQ TABLET SR PO NR (15:00)
[2019-06-15] VITALS (8 sets, daily range): BP systolic 114–152; BP diastolic 53–78
[2019-06-15 05:24] LABS: BASOPHILS % 0.5 % (0.0-2.0); EOSINOPHILS % 0.1 % (0.0-5.0); HEMATOCRIT. 36.8 % (36.0-48.0); HEMOGLOBIN. 12.1 g/dL (12.0-16.0); LYMPHOCYTES % 20.1 % (20.0-50.0); MEAN CORPUSCULAR HEMOGLOBIN 30.4 pg (28.0-32.0); MEAN CORPUSCULAR VOLUME 92.2 fL (81.0-99.0); MEAN PLATELET VOLUME 9.2 fl (7.4-10.4); MONOCYTES % 6.7 % (2.0-8.0); NEUTROPHILS % 72.6 % (40.0-76.0); PLATELET 169 x1000/uL (130-400); RED BLOOD CELL COUNT 3.99 mill/uL (4.2-5.4); RED CELL DISTRIBUTION WIDTH 15.2 % (11.6-14.6)
[2019-06-15 05:32] LABS: CHLORIDE 109 mEq/L (98-107)
[2019-06-15] MEDS ORDERED: ATORVASTATIN CALCIUM 10MG TABLET PO SCH (09:00)
[2019-06-15] MEDS ORDERED: CLOPIDOGREL 75MG TABLET PO SCH (09:00)
[2019-06-15] MEDS ORDERED: ASPIRIN 81MG EC TABLET PO SCH (09:00)
[2019-06-15] MEDS ORDERED: AMLODIPINE 2.5MG TABLET PO SCH (09:00)
[2019-06-15] MEDS ORDERED: LISINOPRIL 5MG TABLET PO SCH (09:00)
== END 2019-06-15 15:30 | disposition home or self-care (01) | DRG 274 ==
LOC: CCL 06:36 → 3WST 06:37
PROVIDERS: ADMIT Internal Medicine Clinical Cardiac Electrophysiology; ATTEND Internal Medicine Clinical Cardiac Electrophysiology
PROC: 02583ZZ Destruction of Conduction Mechanism, Percutaneous Approach (ICD-10-PCS; principal; 2019-06-14)
PROC: 4A023FZ Measurement of Cardiac Rhythm, Percutaneous Approach (ICD-10-PCS; 2019-06-14)
PROC: 4A0234Z Measurement of Cardiac Electrical Activity, Percutaneous Approach (ICD-10-PCS; 2019-06-14)
PROC: 02K83ZZ Map Conduction Mechanism, Percutaneous Approach (ICD-10-PCS; 2019-06-14)
DX: I47.1 Supraventricular tachycardia (principal); E87.6 Hypokalemia; I10 Essential (primary) hypertension; E78.00 Pure hypercholesterolemia, unspecified; I25.10 Atherosclerotic heart disease of native coronary artery without angina pectoris; J44.9 Chronic obstructive pulmonary disease, unspecified; F01.50 Vascular dementia, unspecified severity, without behavioral disturbance, psychotic disturbance, mood disturbance, and anxiety; E78.5 Hyperlipidemia, unspecified; F03.90 Unspecified dementia, unspecified severity, without behavioral disturbance, psychotic disturbance, mood disturbance, and anxiety; F17.210 Nicotine dependence, cigarettes, uncomplicated; Z82.49 Family history of ischemic heart disease and other diseases of the circulatory system; Z86.73 Personal history of transient ischemic attack (TIA), and cerebral infarction without residual deficits; Z71.6 Tobacco abuse counseling; Z79.899 Other long term (current) drug therapy; Z79.82 Long term (current) use of aspirin
CPT/HCPCS: 36415; 80048; 82962; 83735; 85027; 93005; 93613; 93621; 93653; 93662; C1730; C1731; C1732; C1759; C1893; J0153; J1644; J3490